=== PATIENT | male | born 1990 | race Caucasian/White ===

== ENCOUNTER 2018-05-05 17:15 | Emergency (ER) ==
[2018-05-05 17:19] VITALS: BP 143/82; TEMP 98.4; BMI 27.1
[2018-05-05] MEDS ORDERED: MORPHINE 2 MG/ML SYRINGE IM STA (17:36)
[2018-05-05] MEDS ORDERED: ZOFRAN 4 MG/2 ML IM STA (17:36)
--- NOTE | 2018-05-05 18:22 | ED.PDOC ---
General ED Provider: Dr. KEHINDE MENDEZ Chief Complaint: Nausea/Vomiting Stated Complaint: HEADACHE Time Seen by Physician: 17:17 (SEEN WITH ANTONIA JOHANSEN ) Mode of Arrival: Walk-In Information Source: Patient Exam Limitations: No limitations Nursing and Triage Documentation Reviewed and Agree: Yes Does patient meet sepsis criteria?: No If yes, has appropriate treatment been initiated?: No System Inflammatory Response Syndrome: Not Applicable (HISTORY OF MIGRANE HEADACHE PAIN FREE X 2 YEARS STARTED TO HAVE PAIN TODAY) Sepsis Protocol: For patient's 13 years and over: Temp is 96.8 and below OR 101 and greater Pulse >90 BPM Resp >20/minute Acutely Altered Mental Status Are patient's symptoms suggestive of a new infection, such as: -Pneumonia -Skin, Soft Tissue -Endocarditis -UTI -Bone, Joint Infection -Implantable Device -Acute Abdominal Infection -Wound Infection -Meningitis -Blood Stream Catheter Infection -Unknown Neurological Complaint Exam - Headache Complaint/Exam Onset: Gradual Duration: ALL DAY Symptoms Are: Still present Timing: Intermittent Episodes Lasting: Minutes Worst Headache Ever: No Initial Severity: Moderate Current Severity: Moderate Location: Diffuse, Frontal Character: Reports: Throbbing Aggravating: Reports: None Alleviating: Reports: None Associated Signs and Symptoms: Denies: Dizziness, Seizure, Nausea, Vomiting, Sinus pressure, Fever, Neck pain, Neck stiffness, Decreased LOC, Visual changes Related History: Reports: Similar episode Related Surgical History: Reports: None SAH Risk Factors: Reports: None Meningitis Risk Factors: Reports: None SDH Risk Factors: Reports: None Temporal Arteritis Risk Factors: Reports: None Normal Head CT Within Last 12 Months: No Fundoscopic Exam: Present: Normal Findings Papilledema Present: No Temporal Artery Tenderness: Present: None Sinus Tenderness: Present: None TMJ Tenderness: Present: None Glascow Coma Scale (see protocol): 15 Meningeal Signs Positive: No ROM Limited In: No Limitiations Focal Weakness: Present: None Focal Sensory Loss: Present: None Gait: Normal Nystagmus Present: No Gag Reflex Present: Yes [id number]: Normal Findings Romberg Test Positive: No Differential Diagnoses: Migraine Review of Systems - Review Of Systems Constitutional: Reports: No symptoms Eyes: Reports: No symptoms Ears, Nose, Mouth, Throat: Reports: No symptoms Respiratory: Reports: No symptoms Cardiac: Reports: No symptoms GI: Reports: No symptoms : Reports: No symptoms Musculoskeletal: Reports: No symptoms Skin: Reports: No symptoms Neurological: Reports: Headache Endocrine: Reports: No symptoms Hematologic/Lymphatic: Reports: No symptoms All Other Systems: Reviewed and Negative Past Medical History - Past Medical History Previously Healthy: Yes Endocrine: Reports: None Cardiovascular: Reports: None Respiratory: Reports: None Hematological: Reports: None Gastrointestinal: Reports: None Genitourinary: Reports: None Neuro/Psych: Reports: None Musculoskeletal: Reports: None Cancer: Reports: None - Surgical History General Surgical History: Reports: None - Family History Family History: Reports: None - Social History Smoking Status: Never smoker Hx Substance Use: No Alcohol Screening: Occasionally Physical Exam - Physical Exam Appearance: Well-appearing, No pain distress, Well-nourished Eyes: MOSES, EOMI, Conjunctiva clear ENT: Ears normal, Nose normal, Oropharynx normal Respiratory: Airway patent, Breath sounds clear, Breath sounds equal, Respirations nonlabored Cardiovascular: RRR, Pulses normal, No rub, No murmur GI/: Soft, Nontender, No masses, Bowel sounds normal, No Organomegaly Musculoskeletal: Normal strength, ROM intact, No edema, No calf tenderness Skin: Warm, Dry, Normal color Neurological: Sensation intact, Motor intact, Reflexes intact, Cranial nerves intact, Alert, Oriented Psychiatric: Affect appropriate, Mood appropriate Interpretation - Radiology Interpretation Radiology Interpretation By: Radiologist Radiology Results: No acute changes Exam Interpreted: CT Scan Re-Evaluation - Re-Evaluation Time of Re-Evaluation: 18:23 (RECHECK WITH NURSE PRESENT ) Status: Improved Vital Signs Stable: Yes Pain Level: 0 Appearance: NAD Lungs: Clear Skin: Warm and Dry Neuro: Alert and Oriented X3 CV: RRR Additional Comments: NEURO RECHECK IS WNL AWAITING CT REPORT Critical Care Note - Critical Care Note Total Time (mins): 0 Course - Course Orders, Labs, Meds: Orders Category Date Time Status Morphine Sulfate [Morphine 2 mg/ml Syringe] MEDS 05/05/18 17:36 Discontinued 2 mg IM ONCE STA Ondansetron HCl/Pf [Zofran 4 mg/2 ml] MEDS 05/05/18 17:36 Discontinued 6 mg IM ONCE STA CT HEAD W/O CONTRAST Stat RADS 05/05/18 17:36 Taken Medications Discontinued Medications Generic Name Dose Route Start Last Admin Trade Name Freq PRN Reason Stop Dose Admin Morphine Sulfate 2 mg 05/05/18 17:36 05/05/18 17:49 Morphine 2 Mg/Ml Syringe IM 05/05/18 17:37 2 mg ONCE STA Administration Ondansetron HCl 6 mg 05/05/18 17:36 05/05/18 17:48 Zofran 4 Mg/2 Ml IM 05/05/18 17:37 6 mg ONCE STA Administration Vital Signs: Temp Pulse Resp BP Pulse Ox 05/05/18 17:15 98.4 F 83 20 143/82 H 95 Departure - Departure Time of Disposition: 19:00 Disposition: HOME SELF-CARE Discharge Problem: Nausea, Vomiting Acute headache Qualifiers: Headache type: unspecified Intractability: not intractable Qualified Code(s): R51 - Headache Instructions: Acute Headache (ED) Condition: Good Pt referred to PMD for follow-up: Yes IPMP verified?: No Additional Instructions: Please call your Family Physician as soon as possible to schedule a follow-up appointment.YOU WILL NEED YOUR MD FOR M.R.I OF THE BRAIN SINCE THIS IS NEW HEADACHE FOR YOU. FAILURE TO HAVE AN MRI DONE MAY CAUSE A SERIOUS OR EVEN FATAL CONDITION GO UNCHECKED. IF YOU DONT HAVE A DOCTOR MAKE APPOINTMENT WITH [facility] Prescriptions: Hydrocodone/Acetaminophen [[place] 5-325 Tablet] 1 each PO Q6HR PRN #3 tablet PRN Reason: PAIN Allergies/Adverse Reactions: Allergies No Known Allergies Allergy (Verified 05/05/18 17:19) Home Medications: Ambulatory Orders Hydrocodone/Acetaminophen [[place] 5-325 Tablet] 1 each PO Q6HR PRN #3 tablet
--- NOTE | 2018-05-05 18:27 | CT ---
EXAM: CT scan brain without contrast HISTORY: Headache COMPARISON: None. FINDINGS: Contiguous axial images were obtained from skull base to the convexities without contrast utilizing 5-mm collimation. Sagittal and coronal reconstructions were imaged and reviewed.. The [place] tricles and CSF spaces are within normal limits. There are no acute intracranial findings. The visu alized paranasal sinuses and mastoid air cells are clear. IMPRESSION: No acute intracranial findings
[2018-05-05] MEDS ORDERED: SODIUM CHLORIDE 1,000 ML IV STA ×2 (18:49)
== END 2018-05-05 20:18 | disposition home or self-care (01) ==
LOC: ED 17:15
DX: R11.2 Nausea with vomiting, unspecified (principal); R51 Headache
CPT/HCPCS: 36415; 80053; 81001; 85025; 96360; 96361; 96372; 99283

== ENCOUNTER 2018-05-20 14:58 | Outpatient (CLI) ==
--- NOTE | 2018-05-20 16:11 | MRI ---
EXAM: MRI brain without IV contrast. DATE: May 2018. HISTORY: Migraine headaches. TECHNIQUE: Sagittal T1W, axial T2W, axial FLAIR, axial T1W, axial DWI, and coronal T2W GRE sequences of the brain were obtained using 1.2 Lacy magnet. No IV contrast. COMPARISON: CT head 05/05/2018.. FINDINGS: The ventricles, cisterns, and subarachnoid spaces are normal in size and configuration. N o midline shift, mass effect or abnormal extra-axial fluid collection is apparent. No acute infarct, hemorrhage or neoplasm is identified. Minimal IR hyperintensity is revealed in the white matter abu tting the anterior horn of each lateral ventricle. The motta - white matter differentiation is normal . The 7th/8th cranial nerve complexes, cerebellopontine angles, brainstem, and visible cervical spin al cord are normal. There is no cerebellar tonsillar ectopia. The pituitary gland is normal in size and signal. Corpus callosum is normal in size and configuration. Flow voids are present in the eder or intracranial arteries and in the dural venous sinuses. No aneurysm, AVM or dural venous sinus thr ombosis is apparent. Small amount of fluid signal is demonstrated in each optic nerve sheath. No ot her orbit abnormality is identified. The mastoid air cells are unremarkable. There is no acute sinu sitis. A 4.4 x 3 mm retention cyst is suspected along the medial wall of the right maxillary sinus. A 6 x 7.3 mm retention cyst is suspected along the anterior wall of the left maxillary sinus. Minor adenoid cystic prominence appears benign. No neck mass or lymphadenopathy is detected. No calvaria l neoplasm or acute fracture is evident. IMPRESSIONS: 1. No acute infarct, hemorrhage, intra-axial neoplasm or hydrocephalus. 2. Normal variation vs minor periventricular small vessel disease 3. Fluid signal in each optic nerve sheath may be normal variation. 4. Bilateral maxillary sinus small retention cysts.
== END 2018-05-20 14:59 | disposition home or self-care (01) ==
LOC: RAD 14:58
PROVIDERS: ATTEND Family Medicine
DX: G43.009 Migraine without aura, not intractable, without status migrainosus (principal)